=== PATIENT | female | born 1975 | race Caucasian/White ===

== ENCOUNTER → 2022-10-07 | Outpatient (CLI) | payer OTHER ==
[~2022-10-07] MED LIST: CHANTIX 1MG1 MG PO; CYMBALTA; CYMBALTA 60MG60 MG PO; OXY IR5 MG PO; OXYCODONE5 M1 PO; OXYCODONE5 MG PO; PERCOCET 325 MG1 TA2 PO; PERCOCET 5/321 UDTAB PO; PERCOCET 500 MG1 TAB PO; PERCOCET 650 MG1 TAB PO; PERCODAN 325 MG1 TA1 PO; ROXICODONE 55 MG/TAB PO; ZYPREXA 5MG5 MG PO
== END ==
LOC: MC.RAD 10:38
DX: R92.8 Other abnormal and inconclusive findings on diagnostic imaging of breast (principal); N64.89 Other specified disorders of breast; R92.1 Mammographic calcification found on diagnostic imaging of breast

== ENCOUNTER → 2022-10-12 | Outpatient (CLI) | payer BC | LOC: MC.RAD 10:37 | DX: R92.0 Mammographic microcalcification found on diagnostic imaging of breast (principal) ==